=== PATIENT | female | born 1980 | race American Indian/Alaskan Native ===

== ENCOUNTER 2017-02-15 19:49 | Outpatient (CLI) | payer MEDICAID ==
[2017-02-15 20:13] VITALS: BP 131/79
== END 2017-02-15 21:18 | disposition home or self-care (01) ==
LOC: TRG 19:49
PROVIDERS: ATTEND Obstetrics & Gynecology
DX: O47.03 False labor before 37 completed weeks of gestation, third trimester (principal); Z3A.37 37 weeks gestation of pregnancy